=== PATIENT | female | born 1990 | race Caucasian/White ===

== ENCOUNTER 2016-12-19 16:41 | Emergency (ER) | payer OTHER ==
[~2016-12-19] VITALS: Ht 149.9 cm; Wt 41.0 kg
--- NOTE | 2016-12-19 16:50 | NUR ---
Catrachito rodríguez in [facility] - 12/19/16 at 1716 by [facility] PT AMBULATED TO BED 6.
[2016-12-19 16:53] VITALS: BP 123/70
--- NOTE | 2016-12-19 16:55 | NUR ---
PT AMBULATED TO BED 6.
--- NOTE | 2016-12-19 17:00 | NUR ---
26F BIB SELF C/O PAIN TO RT AXILLA, NON-RADIATING, 6/10 X YESTERDAY; PT STATES NO TRAUMA OR INJURY TO SITE AT THIS TIME; TWO "LUMPS" NOTED TO RT AXILLA ON PALPATION, NO ERYTHEMA TO SITE, NO OPEN SKIN NOTED TO SITES AT THIS TIME; PT STATES " YOU CAN'T SEE IT, BUT YOU CAN FEEL THE LUMPS"; PT AA&OX4, PERRLA, BL LUNG SOUNDS CLEAR, RR EVEN/UNLABORED, SKIN IS WARM/DRY/INTACT AT THIS TIME; STEADY GAIT; PT RESTING IN BED WITH HOB ELEVATED AND IN LOWEST POSITION; POSITIONED FOR COMFORT; ER MD MADE AWARE OF STATUS. WILL CONTINUE TO MONITOR.
--- NOTE | 2016-12-19 17:12 | NUR ---
ER MD DR. GOMEZ EVALUATING PT AT BEDSIDE.
[2016-12-19 17:59] VITALS: BP 104/67
--- NOTE | 2016-12-19 17:59 | NUR ---
Patient discharged with v/s stable. Written and verbal after care instructions given and explained. Patient alert, oriented and verbalized understanding of instructions. Ambulatory with steady gait. All questions addressed prior to discharge. ID band removed. Patient advised to follow up with PMD. Rx of BACTRIM DS 800MG-160MG TAB & DOXYCYCLINE 100MG CAP given. Patient educated on indication of medication including possible reaction and side effects. Opportunity to ask questions provided and answered.
== END 2016-12-19 17:59 | disposition home or self-care (01) ==
LOC: MED 16:41
DX: L72.3 Sebaceous cyst (principal)
CPT/HCPCS: 99283

== ENCOUNTER 2017-07-26 07:08 | Emergency (ER) | payer OTHER ==
[~2017-07-26] VITALS: Ht 144.8 cm; Wt 48.1 kg
[2017-07-26 07:13] VITALS: BP 98/65
[2017-07-26 08:04] LABS: BASOPHILS % (AUTO) 0.3 % (0.0-2.0); EOSINOPHILS # (AUTO) 0.1 K/uL (0-0.4); EOSINOPHILS % (AUTO) 0.7 % (0.0-4.0); HEMATOCRIT 25.4 % (36-48); HEMOGLOBIN 8.7 g/dL (12.0-16.0); LYMPHOCYTES # (AUTO) 1.5 K/uL (2.5-16.5); LYMPHOCYTES % (AUTO) 16.1 % (20.5-51.1); MEAN CORPUSCULAR HEMOGLOBIN 29 pg (27-31); MEAN CORPUSCULAR HGB CONC 34 g/dL (33-37); MEAN CORPUSCULAR VOLUME 85.4 fL (80-94); MONOCYTES # (AUTO) 0.7 K/uL (0.8-1.0); MONOCYTES % (AUTO) 7.2 % (1.7-9.3); NEUTROPHILS # (AUTO) 7.1 K/uL (1.8-7.7); NEUTROPHILS % (AUTO) 75.7 % (42.2-75.2); PLATELET COUNT (AUTO) 199 K/uL (140-450); RED BLOOD CELL COUNT(AUTO) 2.98 MIL/uL (4.20-5.40); RED CELL DISTRIBUTION WIDTH 12.9 % (11.6-13.7); WHITE BLOOD COUNT (AUTO) 9.3 K/uL (4.8-10.8)
[2017-07-26 08:16] LABS: PROTHROMBIN TIME 9.9 secs (10.8-13.4)
[2017-07-26 08:17] LABS: ANION GAP 15.7 (8-16); CARBON DIOXIDE 24.3 mmol/L (21-32); CREATININE 0.5 mg/dL (0.6-1.3)
[2017-07-26 10:25] VITALS: BP 110/63
== END 2017-07-26 10:25 | disposition home or self-care (01) ==
LOC: MED 07:08
DX: O9A.213 Injury, poisoning and certain other consequences of external causes complicating pregnancy, third trimester (principal); S86.911A Strain of unspecified muscle(s) and tendon(s) at lower leg level, right leg, initial encounter; X50.3XXA Overexertion from repetitive movements, initial encounter; Y93.89 Activity, other specified; Y92.89 Other specified places as the place of occurrence of the external cause; Y99.8 Other external cause status; E83.51 Hypocalcemia; O99.013 Anemia complicating pregnancy, third trimester; D64.9 Anemia, unspecified; Z3A.28 28 weeks gestation of pregnancy
CPT/HCPCS: 36415; 80048; 83735; 85025; 85379; 85610; 93971; 99285

== ENCOUNTER 2017-09-07 21:05 | Observation (INO) | payer OTHER ==
[~2017-09-07] VITALS: Ht 147.3 cm; Wt 53.1 kg
[2017-09-07 22:04] VITALS: BP 107/68
[2017-09-07] MEDS ORDERED: ASCO500T45 PO (22:10)
== END 2017-09-08 00:07 | disposition home or self-care (01) ==
LOC: MLD 21:05
PROVIDERS: ADMIT Obstetrics & Gynecology; ATTEND Obstetrics & Gynecology
DX: O46.93 Antepartum hemorrhage, unspecified, third trimester (principal); Z3A.33 33 weeks gestation of pregnancy
CPT/HCPCS: 76805; 81000; G0378; Q0092